=== PATIENT | female | born 2000 | race Caucasian/White ===

== ENCOUNTER 2020-07-13 20:41 | Emergency (ER) | payer OTHER ==
[2020-07-13] MEDS ORDERED: KETOROLAC 60 MG/2 ML VIAL IM STA (21:01)
--- NOTE | 2020-07-13 21:04 | ED Physician Documentation ---
History of Present Illness - Stated complaint Stated Complaint: LT LEG INJURY - Chief complaint Chief Complaint: Ext Problem - Additonal information Additional information: 19-year-old female presents emergency department for evaluation of acute left foot and ankle pain. Occurred this afternoon when she was flipping a mattress and jumped over the mattress and inverted her left foot and ankle. She has had swelling on the dorsum of the foot over the proximal fourth and fifth metatarsal since. Difficulty and pain with weightbearing. No history of previous injury to this leg. Review of Systems Constitutional: reports: Reviewed and negative Eyes: reports: Reviewed and negative Ears: reports: Reviewed and negative Nose: reports: Reviewed and negative Throat: reports: Reviewed and negative Cardiac: reports: Reviewed and negative GI: reports: Reviewed and negative : reports: Reviewed and negative Skin: reports: Reviewed and negative Musculoskeletal: reports: Extremity pain (left foot and ankle) PD PAST MEDICAL HISTORY - Past Medical History Past Medical History: Yes Psych: Depression, Anxiety, ADD/ADHD Derm: Other Other Past Medical History: acne - Past Surgical History Past Surgical History: No - Present Medications Home Medications: Ambulatory Orders Medication Instructions Recorded Confirmed Ibuprofen [Motrin] 600 mg PO Q6H PRN #30 tab 07/13/20 - Allergies Allergies/Adverse Reactions: Allergies Allergy/AdvReac Type Severity Reaction Status Date / Time No Known Drug Allergies Allergy Verified 07/13/20 20:54 - Social History Does the pt smoke?: No Smoking Status: Never smoker Does the pt drink ETOH?: No Does the pt have substance abuse?: No - Immunizations Immunizations are current?: Yes - POLST Patient has POLST: No PD ED PE EXPANDED - General General: Alert, No acute distress, Well developed/nourished - Extremities Extremities: Left foot (Tenderness over the dorsum of the foot on the fourth and fifth proximal metatarsals. Normal inversion eversion of left ankle. 2+ distal DP pulse. Mild swelling. Unable to bear weight on left foot) Results - Vitals Vitals: Vital Signs - 24 hr 07/13/20 07/13/20 20:50 20:56 Temperature 36.3 C L 36.3 C L Heart Rate 84 84 Respiratory 18 18 Rate Blood Pressure 124/72 124/72 O2 Saturation 98 98 Oxygen O2 Source Room air - Rads (name of study) left ankle Radiology: Final report received (No acute fracture or osseous lesion.) left foot Radiology: Final report received (No acute fracture or dislocation) PD MEDICAL DECISION MAKING - ED course Complexity details: reviewed results, re-evaluated patient, considered differential, d/w patient ED course: 19-year-old female presents emergency department with acute left foot and ankle pain after an inversion injury when jumping over a mattress earlier this evening. She had pain and inability to bear weight. X-rays of the ankle and foot do not show any acute fracture or osseous lesion. Her pain was moderately improved in the emergency department following Toradol. I have recommended Jarrett wrap and crutches and nonweightbearing for the next 2 to 3 days. Routine care and management of suspected sprain was discussed. However if symptoms not markedly better in about 10 days she should return for repeat x-ray to rule out occult fracture. Departure - Departure Disposition: 01 Home, Self Care Clinical Impression: Sprain of left foot Qualifiers: Encounter type: initial encounter Qualified Code(s): S93.602A - Unspecified sprain of left foot, initial encounter Condition: Stable Record reviewed to determine appropriate education?: Yes Instructions: ED Sprain Foot Prescriptions: Ibuprofen [Motrin] 600 mg PO Q6H PRN #30 tab PRN Reason: Pain Comments: Jude the x-rays of your foot and ankle do not show any acutely broken bones. Sounds most like you have sprained it. Would recommend that you use an Jarrett wrap on your foot and ankle when out of bed for the next few days. Use her crutches and attempt to be nonweightbearing. In 3 to 4 days I would like you to try to start bearing more and more weight consistently. If your symptoms are not markedly better in 10 days see your primary care provider return to the ER to reese ve repeat imaging done of the foot because in rare cases we can sometimes miss subtle fractures. I have prescribed ibuprofen for pain. Take with food 2-3 times a day as needed. I would also like you to ice the foot for 10 minutes 2-3 times a day
--- NOTE | 2020-07-13 21:38 | XRAY Report ---
PROCEDURE: Ankle 2 View LT INDICATIONS: pain after landing wrong TECHNIQUE: 2 views of the ankle were acquired. COMPARISON: None FINDINGS: Bones: No fractures or dislocations. Ankle mortise is normally aligned. No suspicious bony lesions . Soft tissues: No tibiotalar joint effusion. Achilles tendon appears normal. IMPRESSION: No fracture. No osseous lesion. If there is continued clinical concern for pathology, th en repeat plain film radiographs (7-10 days) or advanced imaging (CT, MR, bone scan) should be consid ered for further evaluation. Reviewed by: Beatriz Girard MD, PhD on 07/13/2020 9:37 PM PST Approved by: Beatriz Girard MD, PhD on 07/13/2020 9:37 PM PST Station ID: [id number]
--- NOTE | 2020-07-13 21:41 | XRAY Report ---
PROCEDURE: Foot 3 View LT INDICATIONS: Twisting injury r/o fx of proximal 4/5th metatarsal TECHNIQUE: 3 views of the foot were acquired. COMPARISON: FINDINGS: Bones: No fractures or dislocations. No suspicious bony lesions. 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 Soft tissues: No tibiotalar joint effusion. Achilles tendon appears normal. IMPRESSION: 1. No fracture. No acute osseous lesion. If there is continued clinical concern for pathology, then r epeat plain film radiographs (7-10 days) or advanced imaging (CT, MR, bone scan) should be considered for further evaluation. 2. 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 Reviewed by: Beatriz Girard MD, PhD on 07/13/2020 9:39 PM PST Approved by: Beatriz Girard MD, PhD on 07/13/2020 9:39 PM PST Station ID: [id number]
[2020-07-13 21:56] VITALS: BP 122/72
== END 2020-07-13 22:10 | disposition home or self-care (01) ==
LOC: ED 20:41
DX: S93.602A Unspecified sprain of left foot, initial encounter (principal); X50.0XXA Overexertion from strenuous movement or load, initial encounter; Y93.E9 Activity, other interior property and clothing maintenance
CPT/HCPCS: 96372; 99282; 99283

== ENCOUNTER 2022-01-22 08:00 | Outpatient (CLI) | payer OTHER ==
[2022-01-22 20:49] LABS: BASOPHILS # (AUTO) 0.1 10^3/uL (0.0-0.1); BASOPHILS % (AUTO) 1.1 %; EOSINOPHILS # (AUTO) 0.8 10^3/uL (0.0-0.7); HCT - HEMATOCRIT 39.6 % (37.0-47.0); HGB - HEMOGLOBIN 13.4 g/dL (12.0-16.0); LYMPHOCYTES # (AUTO) 3.7 10^3/uL (1.5-3.5); LYMPHOCYTES % (AUTO) 44.1 %; MEAN CORPUSCULAR HEMOGLOBIN 30.2 pg (27.0-31.0); MEAN CORPUSCULAR HGB CONC 33.8 g/dL (32.0-36.0); MEAN CORPUSCULAR VOLUME 89.2 fL (81.0-99.0); MEAN PLATELET VOLUME 10.2 fL (7.9-10.8); MONOCYTES # (AUTO) 0.6 10^3/uL (0.0-1.0); MONOCYTES % (AUTO) 6.9 %; NEUTROPHILS # (AUTO) 3.2 10^3/uL (1.5-6.6); NEUTROPHILS % (AUTO) 38.8 %; PLT - PLATELET COUNT 311 10^3/uL (130-450); RED BLOOD COUNT 4.44 10^6/uL (4.20-5.40); RED CELL DISTRIBUTION WIDTH 12.6 % (12.0-15.0); WHITE BLOOD COUNT 8.4 x10^3/uL (4.8-10.8)
[2022-01-22 21:02] LABS: BILIRUBIN,URINE NEGATIVE (NEGATIVE); GLUCOSE, URINE (UA) NEGATIVE (NEGATIVE); KETONES,URINE (UA) TRACE mg/dL (NEGATIVE); LEUKOCYTE ESTERASE, URINE NEGATIVE (NEGATIVE); NITRITE,URINE NEGATIVE (NEGATIVE); OCCULT BLOOD,URINE NEGATIVE (NEGATIVE); PROTEIN,URINE NEGATIVE (NEGATIVE); UROBILINOGEN,URINE 0.2 (NORMAL) E.U./dL (NORMAL)
[2022-01-22 21:03] LABS: ALBUMIN/GLOBULIN RATIO 1.1 (1.0-2.2); BILIRUBIN,TOTAL 0.3 mg/dL (0.2-1.0); CALCIUM 9.4 mg/dL (8.5-10.3); CREATININE 0.8 mg/dL (0.4-1.0); POTASSIUM 3.9 mmol/L (3.5-5.0); TOTAL PROTEIN 7.6 g/dL (6.7-8.2)
[2022-01-22 21:07] LABS: CLARITY,URINE CLOUDY (CLEAR)
[2022-01-22 21:11] LABS: AMORPHOUS SEDIMENT,UR Rare /LPF; BACTERIA,URINE Rare /HPF (None Seen); RBC,URINE None Seen /HPF (0-5); SQUAMOUS EPITHELIAL CELL,UR RARE Squamous (<= Few); WBC,URINE 0-3 /HPF (0-5)
== END 2022-01-22 23:59 | disposition home or self-care (01) ==
LOC: LAB.N 08:00
PROVIDERS: ATTEND Family Medicine
DX: R10.11 Right upper quadrant pain (principal)
CPT/HCPCS: 36415; 80053; 81001; 85025; 87086